=== PATIENT | female | born 1955 | race Two or more races ===

== ENCOUNTER 2023-09-30 13:26 | Emergency (ER) | payer OTHER ==
[2023-09-30 13:46] VITALS: BP 163/89; PULSE 86; RESP 19; BMI 29.6
[2023-09-30 13:47] VITALS: TEMP 97.5
[2023-09-30] MEDS ORDERED: ACETAMINOPHEN 500 MG TABLET (FP) ONE (13:58)
[2023-09-30] MEDS ORDERED: LIDOCAINE 4% PATCH TP ONE (13:58)
[2023-09-30] MEDS: LIDOCAINE 4% PATCH TP ONE (14:01)
[2023-09-30] MEDS: ACETAMINOPHEN 500 MG TABLET (FP) PO ONE (14:01)
[2023-09-30] MEDS ORDERED: LIDOCAINE PATCH REMOVAL MC SCH (22:00)
== END 2023-09-30 15:49 | disposition home or self-care (01) ==
LOC: JERFT 13:26
DX: R07.81 Pleurodynia (principal); R51.9 Headache, unspecified; W17.89XA Other fall from one level to another, initial encounter
CPT/HCPCS: 70100-TC-FY; 71046-TC-FY; 71101-TC-RT-FY; 99284-25